=== PATIENT | female | born 1970 | race Caucasian/White ===

== ENCOUNTER 2021-03-07 19:30 | Emergency (ER) | payer OTHER, SELFPAY ==
[2021-03-07 19:38] VITALS: BP 140/99; PULSE 117; RESP 20; TEMP 37.7; O2SAT 100
--- NOTE | 2021-03-07 19:50 | ED.NECK ---
HPI - Neck Pain/Injury General Chief Complaint: Neck Pain/Injury Stated Complaint: right side neck and shoulder pain Time Seen by Provider: 03/07/21 19:44 Source: patient and RN notes reviewed Mode of arrival: ambulatory Limitations: no limitations History of Present Illness HPI Narrative: Patient presents today complaining of a 1 week history of right-sided neck pain and stiffness that radiates to her right upper arm. States she woke up with the pain. Reports some tingling in her upper arm as well. Currently rates her pain 15/10 and has been taking excessive amounts of ibuprofen. Patient also uses methamphetamine. Related Data Allergies Allergy/AdvReac Type Severity Reaction Status Date / Time methylphenidate Allergy Intermediate Confusion Verified 03/07/21 19:45 milnacipran Allergy Intermediate Unknown Verified 03/07/21 19:45 adhesive Allergy Unknown Rash Verified 03/07/21 19:45 Corticosteroids Allergy Unknown Palpitation Verified 03/07/21 19:45 (Glucocorticoids) s morphine Allergy Unknown Chest Pain Verified 03/07/21 19:45 sumatriptan Allergy Unknown Flushing Verified 03/07/21 19:45 tetracycline Allergy Unknown Vomiting Verified 03/07/21 19:45 Tetracyclines Allergy Unknown Vomiting Verified 03/07/21 19:45 prednisone AdvReac Unknown Swelling Verified 03/07/21 19:45 Review of Systems Review of Systems: CONSTITUTIONAL: Denies body aches, fever, chills, or sweats. EYES: Denies visual changes, redness, or discharge. ENT: Denies rhinorrhea, congestion, sore throat, or otalgia. CARDIOVASCULAR: Denies chest pain, palpitations, or edema. RESPIRATORY: Denies cough or dyspnea. GASTROINTESTINAL: Denies abdominal pain, nausea, vomiting, or diarrhea. GENITOURINARY: Denies dysuria or hematuria. SKIN: Denies rash, itching, or wounds. MUSCULOSKELETAL: Denies joint pain. + Neck pain NEUROLOGIC: Denies headache, numbness, or weakness.+ Intermittent tingling in right upper arm PSYCH: Denies depression or anxiety. [facility] Family History Family History Mother Hypertension Patient's mother is in good health Family history of diabetes mellitus in first degree relative Family history of heart disease in male family member before age 55 Grandparent Cerebrovascular accident Father Carcinoma of colon Family history of diabetes mellitus in first degree relative Social History Social History (Updated 03/07/21 @ 19:57 by Nay Guajardo, [facility], ) Smoking status: Current every day smoker Alcohol intake: never Substance use: current Substance use type: amphetamines Exam Narrative: GENERAL: Well-appearing, well-nourished, and in moderate pain distress. HEAD: Normocephalic, atraumatic. EYES: EOMI. No redness or drainage. Conjunctivae normal. ENT: Mucous membranes pink and moist. Nares clear. No rhinorrhea. TMs normal bilaterally. Throat normal. Uvula midline. NECK: Decreased AROM due to pain. Tenderness to the right cervical paraspinal muscles, extending down the right scapular border and to the right superior trapezius and to the bicep area. CHEST: No respiratory distress. EXTREMITIES: Normal range of motion of the right shoulder. Distal sensation intact. Capillary refill normal. Radial pulse normal. Hand application security developer equal and strong. No edema. SKIN: Warm, dry, no rash. Capillary refill normal. Normal skin turgor. NEURO: No focal deficits. Alert and oriented x3. Gait steady. PSYCH: Normal affect. No signs of depression or anxiety. Course Vital Signs Vital signs: Vital Signs Temperature 99.9 F H 03/07/21 19:38 Pulse Rate 117 H 03/07/21 19:38 Respiratory Rate 03/07/21 19:38 Blood Pressure 140/99 H 03/07/21 19:38 Pulse Oximetry 100 03/07/21 19:38 Temperature 99.9 F H 03/07/21 19:38 Pulse Rate 117 H 03/07/21 19:38 Respiratory Rate 03/07/21 19:38 Blood Pressure 140/99 H 03/07/21 19:38 Pulse Oximetry 100 03/07/21
== END 2021-03-07 19:57 | disposition home or self-care (01) ==
PROVIDERS: Emergency Provider Nurse Practitioner
DX: M43.6 Torticollis (principal); F17.200 Nicotine dependence, unspecified, uncomplicated
CPT/HCPCS: 99213; G0463